=== PATIENT | male | born 1985 | race African-American/Black ===

== ENCOUNTER 2018-04-03 03:19 | Emergency (ER) | payer OTHER ==
[2018-04-03] MEDS ORDERED: Ketorolac Tromethamine 60 MG/2 ML VIAL ONE ×2 (03:58→05:11)
--- NOTE | 2018-04-03 08:41 | RAD ---
SINGLE VIEW CHEST: Date: 04/03/18 COMPARISON: None. HISTORY: Chest injury and chest pain after falling from couch. FINDINGS: Single view of the chest shows a normal sized cardiomediastinal silhouette. There is no evidence of c onsolidation, mass, or pleural effusion. The bones are unremarkable. IMPRESSION: No evidence of acute cardiopulmonary disease. POS: [facility]
== END 2018-04-03 04:17 | disposition home or self-care (01) ==
LOC: ERS 03:19
DX: S20.211A Contusion of right front wall of thorax, initial encounter (principal); F17.210 Nicotine dependence, cigarettes, uncomplicated; W08.XXXA Fall from other furniture, initial encounter
CPT/HCPCS: 71045; 96372; J1885